=== PATIENT | male | born 1995 | race Caucasian/White ===

== ENCOUNTER 2016-09-30 17:39 | Emergency (ER) | payer OTHER ==
[2016-09-30 18:06] LABS: BASO % 0.2 % (0.2-1.2); EOS # 0.2 10_X3_uL (0.0-0.5); EOS % 1.3 % (0.8-7.0); GRAN # 14.4 10_X3_uL (1.8-5.4); GRAN % 76.8 % (34.0-67.9); HEMATOCRIT 46.5 % (40-51); HEMOGLOBIN 16.4 g/dL (13.7-17.5); LYMPH # 2.8 10_X3_uL (1.3-3.6); MEAN CORPUSCULAR HEMOGLOBIN 31.9 pg (27.0-33.0); MEAN CORPUSCULAR HGB CONC 35.3 g/dL (32.0-36.0); MEAN CORPUSCULAR VOLUME 90.5 fL (79-92); MEAN PLATELET VOLUME 10.5 fl (7.5-11.5); MONO # 1.3 10_X3_uL (0.3-0.8); MONO % 6.7 % (5.3-12.2); PLATELET COUNT 350 x10_3/uL (163-337); RED BLOOD COUNT 5.14 x10_6/uL (4.6-6.1); RED CELL DISTRIBUTION WIDTH 12.9 % (11.6-14.4); WHITE BLOOD COUNT 18.8 x10_3/uL (4.2-9.1)
[2016-09-30 18:08] LABS: URINE BILIRUBIN NEGATIVE (NEGATIVE); URINE BLOOD 1+ (NEGATIVE); URINE GLUCOSE (UA) NORMAL (NORMAL); URINE KETONE TRACE (NEGATIVE); URINE LEUKOCYTE ESTERASE NEGATIVE (NEGATIVE); URINE NITRATE NEGATIVE (NEGATIVE); URINE PROTEIN 1+ (NEGATIVE); UROBILINOGEN NORMAL mg/dL (<1.0)
[2016-09-30 18:21] LABS: ALBUMIN 4.9 gm/dL (3.4-5.0); ALKALINE PHOSPHATASE 140 U/L (50-136); ALT/SGPT 38 U/L (7.53-40.17); AST/SGOT 30 U/L (6.66-35.34); BILIRUBIN,TOTAL 0.56 mg/dL (0.0-1.0); BLOOD UREA NITROGEN 10 mg/dL (7-18); CALCIUM 9.9 mg/dL (8.7-10.7); CARBON DIOXIDE 14 mmol/L (21-32); CREATINE KINASE 308 U/L (35-232); GLUCOSE,RANDOM 217 mg/dL (70-99); POTASSIUM 3.6 mmol/L (3.5-5.1); SODIUM 137 mmol/L (136-145); TOTAL PROTEIN 8.4 gm/dL (6.4-8.2)
[2016-09-30 18:22] LABS: ACETAMINOPHEN < 15.0 ug/ml (10.0-30.0)
[2016-09-30 18:33] LABS: URINE AMORPHOUS SEDIMENT 2+; URINE BACTERIA TRACE (NONE SEEN); URINE FINE GRANULAR CAST 0-2 /[HPF] (NONE SEEN); URINE MUCUS 1+; URINE RBC 0-5 /[HPF] (0-2)
== END 2016-09-30 20:05 | disposition home or self-care (01) ==
LOC: ER 17:39
PROVIDERS: Internal Medicine
DX: F41.9 Anxiety disorder, unspecified (principal); F11.10 Opioid abuse, uncomplicated; Z79.899 Other long term (current) drug therapy; F25.9 Schizoaffective disorder, unspecified
CPT/HCPCS: 36415; 80053; 80307; 81001; 82550; 82553; 85025; 93005; 96374; 96376; 99070; 99283-25; G0480

== ENCOUNTER 2016-10-03 14:40 | Emergency (ER) | payer OTHER | END 2016-10-03 15:03 | disposition home or self-care (01) | LOC: ER 14:40 | DX: F15.23 Other stimulant dependence with withdrawal (principal); F41.9 Anxiety disorder, unspecified | CPT/HCPCS: 99283 ==

== ENCOUNTER 2016-11-18 13:31 | Emergency (ER) | payer OTHER | END 2016-11-18 16:15 | disposition home or self-care (01) | LOC: ER 13:31 | DX: F13.20 Sedative, hypnotic or anxiolytic dependence, uncomplicated (principal); R51 Headache | CPT/HCPCS: 99284 ==